=== PATIENT | male | born 1980 | race Caucasian/White ===

== ENCOUNTER 2017-04-16 14:10 | Emergency (ER) | payer MEDICAID ==
[2017-04-16] MEDS: IBUPROFEN 600 MG TAB PO (16:33)
[2017-04-16 16:44] LABS: ADD UMIC NO; UR ASCORBIC ACID 20 mg/dL (NEGATIVE); UR BILIRUBIN (Dip) NEGATIVE (NEGATIVE); UR BLOOD (Dip) NEGATIVE (NEGATIVE); UR CLARITY CLEAR (CLEAR); UR COLOR YELLOW (YELLOW); UR GLUCOSE (Dip) NEGATIVE (NEGATIVE); UR KETONES (Dip) NEGATIVE (NEGATIVE); UR LEUKOCYTE ESTERASE (Dip) NEGATIVE Leu/ul (NEGATIVE); UR NITRITE (Dip) NEGATIVE (NEGATIVE); UR SPECIFIC GRAVITY (Dip) 1.012 (1.003-1.030); UR TOTAL PROTEIN (Dip) NEGATIVE (NEGATIVE); UR UROBILINOGEN (Dip) NEGATIVE (NEGATIVE)
== END 2017-04-16 17:35 | disposition home or self-care (01) ==
LOC: FTE 14:10
DX: N50.811 Right testicular pain (principal)
CPT/HCPCS: 74176; 81003; 99284-25

== ENCOUNTER 2018-09-20 09:50 | Emergency (ER) | payer MEDICAID ==
[2018-09-20] MEDS: ACETAMINOPHEN 500 MG TAB PO (11:29)
[2018-09-20] MEDS: KETOROLAC 30 MG INJ IM (11:29)
[2018-09-20] MEDS: IBUPROFEN 800 MG TAB PO (11:40)
== END 2018-09-20 13:08 | disposition home or self-care (01) ==
LOC: FTE 09:50
DX: R05 Cough (principal)
CPT/HCPCS: 71046; 96372; 99284-25